=== PATIENT | male | born 1985 | race African-American/Black ===

== ENCOUNTER 2022-01-04 20:43 | Emergency (ER) | payer OTHER ==
[~2022-01-04] VITALS: Ht 167.6 cm; Wt 99.8 kg
[2022-01-04] MEDS ORDERED: PROAIR HFA8.5 GM INH (20:57)
[2022-01-04] MEDS ORDERED: ALBUTEROL2.5 MG/0.5 INH (20:58)
[2022-01-04 22:16] VITALS: BP 130/91
--- NOTE | 2022-01-05 09:39 | EKG ---
[place] [address] ELECTROCARDIOGRAM REPORT Name: SHARLENE MARROQUIN 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
== END 2022-01-04 22:16 | disposition home or self-care (01) ==
LOC: M.ERS 20:43
DX: R07.89 Other chest pain (principal); J45.909 Unspecified asthma, uncomplicated; Z79.51 Long term (current) use of inhaled steroids